=== PATIENT | male | born 1950 | race Caucasian/White ===

== ENCOUNTER → 2023-08-16 07:31 | Outpatient (REF) | payer MEDICARE, OTHER, SELFPAY | LOC: MRI 3T 07:31 | PROVIDERS: ATTENDING PHYSICIAN Specialist; FAMILY PHYSICIAN Family Medicine | DX: R97.20 Elevated prostate specific antigen [PSA] (principal); Z12.5 Encounter for screening for malignant neoplasm of prostate | CPT/HCPCS: 72197; A9575 ==

== ENCOUNTER → 2023-09-11 10:16 | Outpatient (REF) | payer MEDICARE, OTHER, SELFPAY | LOC: CLAB 10:16 | PROVIDERS: ATTENDING PHYSICIAN Specialist | DX: R97.20 Elevated prostate specific antigen [PSA] (principal) | CPT/HCPCS: 88305 ==

== ENCOUNTER → 2024-01-07 06:03 | Outpatient (REF) | payer MEDICARE, OTHER, SELFPAY ==
[2024-01-07 10:24] LABS: PSA, Total - Diagnostic 3.68 ng/ml (0.0-4.0)
== END ==
LOC: HWLAB 06:03
PROVIDERS: ATTENDING PHYSICIAN Specialist; FAMILY PHYSICIAN Family Medicine
DX: C61 Malignant neoplasm of prostate (principal)
CPT/HCPCS: 36415; 84153

== ENCOUNTER → 2024-01-23 06:01 | Outpatient (REF) | payer MEDICARE, OTHER, SELFPAY ==
[2024-01-23 10:48] LABS: ALT (SGPT) 19 U/L (0-50); AST (SGOT) 23 U/L (17-59); Albumin 4.2 g/dl (3.5-5.0); Alkaline Phosphatase 68 U/L (38-126); Blood Urea Nitrogen 13 mg/dl (9-20); Calcium 9.8 mg/dl (8.4-10.2); Carbon Dioxide 29 mmol/L (22-30); Chloride 100 mmol/L (98-107); Glucose 113 mg/dl (70-99); Potassium 4.4 mmol/L (3.5-5.1); Sodium 135 mmol/L (135-145); Total Bilirubin 0.6 mg/dl (0.2-1.3); Total Protein 6.7 g/dl (6.3-8.2); Uric Acid 4.9 mg/dl (3.5-8.5); eGFR > 60.00
== END ==
LOC: HWLAB 06:01
PROVIDERS: ATTENDING PHYSICIAN Internal Medicine Rheumatology; FAMILY PHYSICIAN Family Medicine
DX: M10.9 Gout, unspecified (principal)
CPT/HCPCS: 36415; 80053; 84550

== ENCOUNTER → 2024-01-30 06:01 | Outpatient (REF) | payer MEDICARE, OTHER, SELFPAY ==
[2024-01-30 10:20] LABS: Erythrocyte Sed Rate 16 mm/hour (0-20)
[2024-01-31 16:01] LABS: Rheumatoid Agglutinin Less Than 10 IU (<10 IU)
[2024-01-31 22:40] LABS: ANA, IgG Reflex to HEp-2 None Detected (None Detected)
[2024-02-01 00:11] LABS: CCP Antibody IgG/IgA 3 Units (0-19)
== END ==
LOC: HWLAB 06:01
PROVIDERS: ATTENDING PHYSICIAN Internal Medicine Rheumatology; FAMILY PHYSICIAN Family Medicine
DX: M25.50 Pain in unspecified joint (principal)
CPT/HCPCS: 36415; 73110; 73130; 85652; 86038; 86140; 86200; 86430

== ENCOUNTER → 2024-04-01 06:09 | Outpatient (REF) | payer MEDICARE, OTHER, SELFPAY ==
[2024-04-01 08:45] LABS: Urine Albumin Negative (Neg - Trace); Urine Bilirubin Negative (Negative); Urine Glucose Negative (Negative); Urine Ketone Negative (Negative); Urine Leukocyte Negative (Negative); Urine Nitrite Negative (Negative); Urine Occult Blood Negative (Negative); Urine Urobilinogen Negative (Neg - 1+); Urine pH 6.5 (5.0-9.0)
[2024-04-01 08:50] LABS: % Basophils 1.4 % (0-2); % Eosinophils 2.3 % (0-6); % Immature Granulocytes 0.4 % (0-0.5); % Lymphocytes 26.4 % (20.5-51.1); % Monocytes 13.1 % (1.7-9.3); % Neutrophils 56.4 % (42.2-75.2); Absolute Basophils 0.1 10^3/uL (0-0.2); Absolute Eosinophils 0.1 10^3/uL (0-0.7); Absolute Lymphocytes 1.5 10^3/uL (1.2-3.4); Absolute Monocytes 0.7 10^3/uL (0.1-0.6); Absolute Neutrophils 3.1 10^3/uL (1.4-6.5); Hematocrit 43.4 % (39.0-52.0); Hemoglobin 14.9 g/dL (13.0-18.0); Mean Corp Hgb Conc. 34.3 g/dL (33.0-37.0); Mean Corpuscular Hgb 32.7 pg (27.0-31.0); Mean Corpuscular Volume 95.2 fL (80.0-94.0); Mean Platelet Volume 9.4 fL (7.4-10.4); Nucleated Red Blood Cells % 0 % (-); Platelet Count 185 10^3/uL (130-400); Red Blood Cell Count 4.56 10^6/uL (4.70-6.10); Red Cell Dist. Width 13.2 % (11.5-14.5); White Blood Cell Count 5.6 10^3/uL (4.8-10.8)
[2024-04-01 09:00] LABS: Urine Character Clear (Clear); Urine Color Yellow
[2024-04-01 09:03] LABS: ALT (SGPT) 22 U/L (0-50); AST (SGOT) 23 U/L (17-59); Albumin 4.4 g/dl (3.5-5.0); Alkaline Phosphatase 53 U/L (38-126); Blood Urea Nitrogen 15 mg/dl (9-20); Calcium 9.6 mg/dl (8.4-10.2); Carbon Dioxide 28 mmol/L (22-30); Chloride 97 mmol/L (98-107); Glucose 106 mg/dl (70-99); HDL Cholesterol 89 mg/dl; LDL Cholesterol, Calculated 141 mg/dl; Potassium 4.4 mmol/L (3.5-5.1); Sodium 137 mmol/L (135-145); Total Bilirubin 0.9 mg/dl (0.2-1.3); Total Cholesterol 250 mg/dl (50-199); Total Protein 7.1 g/dl (6.3-8.2); Triglyceride 102 mg/dl (10-149); Very Low Density Lipoprotein 20 mg/dl (0-30); eGFR > 60.00
[2024-04-01 09:38] LABS: Glycohemoglobin (HgbA1c) 5.2 % (4.0-5.6)
[2024-04-01 09:39] LABS: PSA, Total - Diagnostic 4.74 ng/ml (0.0-4.0); TSH 2.12 uIU/ml (0.47-4.68)
[2024-04-03 20:52] LABS: Quantiferon Mitogen minus NIL 4.71 IU/mL; Quantiferon TB Gold Plus Negative (Negative)
== END ==
LOC: HWLAB 06:09
PROVIDERS: ATTENDING PHYSICIAN Specialist; FAMILY PHYSICIAN Family Medicine; REFERRING PHYSICIAN Internal Medicine Rheumatology
DX: L40.59 Other psoriatic arthropathy (principal); E78.2 Mixed hyperlipidemia; I10 Essential (primary) hypertension; R73.03 Prediabetes; C61 Malignant neoplasm of prostate
CPT/HCPCS: 36415; 80053; 80061; 81003; 83036; 84153; 84443; 85025; 86140; 86480

== ENCOUNTER → 2024-07-04 09:12 | Outpatient (REF) | payer MEDICARE, OTHER, SELFPAY ==
[2024-07-04 14:28] LABS: PSA, Total - Diagnostic 3.86 ng/ml (0.0-4.0)
== END ==
LOC: HWLAB 09:12
PROVIDERS: ATTENDING PHYSICIAN Specialist; FAMILY PHYSICIAN Family Medicine
DX: C61 Malignant neoplasm of prostate (principal)
CPT/HCPCS: 36415; 84153

== ENCOUNTER → 2024-08-06 06:13 | Outpatient (REF) | payer MEDICARE, OTHER, SELFPAY ==
[2024-08-06 09:28] LABS: % Basophils 1.2 % (0-2); % Eosinophils 3.7 % (0-6); % Immature Granulocytes 0.4 % (0-0.5); % Lymphocytes 22.8 % (20.5-51.1); % Monocytes 14.2 % (1.7-9.3); % Neutrophils 57.7 % (42.2-75.2); Absolute Basophils 0.1 10^3/uL (0-0.2); Absolute Eosinophils 0.2 10^3/uL (0-0.7); Absolute Lymphocytes 1.2 10^3/uL (1.2-3.4); Absolute Monocytes 0.7 10^3/uL (0.1-0.6); Absolute Neutrophils 2.9 10^3/uL (1.4-6.5); Hematocrit 39.6 % (39.0-52.0); Hemoglobin 13.7 g/dL (13.0-18.0); Mean Corp Hgb Conc. 34.6 g/dL (33.0-37.0); Mean Corpuscular Hgb 32.5 pg (27.0-31.0); Mean Corpuscular Volume 93.8 fL (80.0-94.0); Mean Platelet Volume 9.8 fL (7.4-10.4); Nucleated Red Blood Cells % 0 % (-); Platelet Count 176 10^3/uL (130-400); Red Blood Cell Count 4.22 10^6/uL (4.70-6.10); Red Cell Dist. Width 12.4 % (11.5-14.5); White Blood Cell Count 5.1 10^3/uL (4.8-10.8)
[2024-08-06 09:36] LABS: ALT (SGPT) 20 U/L (0-50); AST (SGOT) 27 U/L (17-59); Albumin 4.8 g/dl (3.5-5.0); Alkaline Phosphatase 55 U/L (38-126); Blood Urea Nitrogen 13 mg/dl (9-20); Calcium 9.4 mg/dl (8.4-10.2); Carbon Dioxide 29 mmol/L (22-30); Chloride 96 mmol/L (98-107); Glucose 101 mg/dl (70-99); HDL Cholesterol 79 mg/dl; Potassium 4.6 mmol/L (3.5-5.1); Sodium 134 mmol/L (135-145); Total Bilirubin 0.7 mg/dl (0.2-1.3); Total Protein 7.4 g/dl (6.3-8.2); Triglyceride 79 mg/dl (10-149); Uric Acid 4.1 mg/dl (3.5-8.5); Very Low Density Lipoprotein 15 mg/dl (0-30); eGFR > 60.00
[2024-08-06 09:41] LABS: LDL Cholesterol, Calculated 112 mg/dl; Total Cholesterol 206 mg/dl (50-199)
[2024-08-06 09:44] LABS: C-Reactive Protein < 5.00 mg/L (0.0-10.00)
[2024-08-06 10:06] LABS: Glycohemoglobin (HgbA1c) 5.1 % (4.0-5.6)
[2024-08-06 10:20] LABS: Free T4 0.91 ng/dl (0.78-2.19)
[2024-08-06 10:23] LABS: TSH 2.44 uIU/ml (0.47-4.68)
[2024-08-08 05:15] LABS: Quantiferon Mitogen minus NIL 9.99 IU/mL; Quantiferon NIL 0.01 IU/mL; Quantiferon TB Gold Plus Negative (Negative)
== END ==
LOC: HWLAB 06:13
PROVIDERS: ATTENDING PHYSICIAN Internal Medicine Rheumatology; FAMILY PHYSICIAN Family Medicine
DX: M10.9 Gout, unspecified (principal); L40.59 Other psoriatic arthropathy; E78.2 Mixed hyperlipidemia; R73.03 Prediabetes; Z85.820 Personal history of malignant melanoma of skin
CPT/HCPCS: 36415; 80053; 80061; 83036; 84439; 84443; 84550; 85025; 86140; 86480

== ENCOUNTER → 2024-09-15 08:56 | Outpatient (REF) | payer MEDICARE, OTHER, SELFPAY | LOC: HWRAD 08:56 | PROVIDERS: ATTENDING PHYSICIAN Internal Medicine Rheumatology; FAMILY PHYSICIAN Family Medicine | DX: M85.89 Other specified disorders of bone density and structure, multiple sites (principal) | CPT/HCPCS: 77080 ==

== ENCOUNTER → 2024-09-30 11:31 | Outpatient (REF) | payer MEDICARE, OTHER, SELFPAY ==
[2024-09-30 16:12] LABS: PSA, Total - Diagnostic 3.97 ng/ml (0.0-4.0)
== END ==
LOC: HWLAB 11:31
PROVIDERS: ATTENDING PHYSICIAN Specialist; FAMILY PHYSICIAN Physician Assistant
DX: R05.1 Acute cough (principal); C61 Malignant neoplasm of prostate
CPT/HCPCS: 36415; 71046; 84153

== ENCOUNTER → 2025-01-19 06:06 | Outpatient (REF) | payer MEDICARE, OTHER, SELFPAY ==
[2025-01-19 09:42] LABS: ALT (SGPT) 18 U/L (0-50); AST (SGOT) 21 U/L (17-59); Albumin 4.2 g/dl (3.5-5.0); Alkaline Phosphatase 55 U/L (38-126); Blood Urea Nitrogen 15 mg/dl (9-20); Calcium 9.4 mg/dl (8.4-10.2); Carbon Dioxide 29 mmol/L (22-30); Chloride 99 mmol/L (98-107); Glucose 103 mg/dl (70-99); Potassium 4.2 mmol/L (3.5-5.1); Sodium 132 mmol/L (135-145); Total Protein 6.9 g/dl (6.3-8.2); Uric Acid 4.3 mg/dl (3.5-8.5); eGFR > 60.00
[2025-01-19 09:43] LABS: C-Reactive Protein < 5.00 mg/L (0.0-10.00)
[2025-01-19 10:18] LABS: PSA, Total - Diagnostic 3.77 ng/ml (0.0-4.0)
== END ==
LOC: HWLAB 06:06
PROVIDERS: ATTENDING PHYSICIAN Specialist; FAMILY PHYSICIAN Family Medicine; REFERRING PHYSICIAN Internal Medicine Rheumatology
DX: M10.9 Gout, unspecified (principal); C61 Malignant neoplasm of prostate
CPT/HCPCS: 36415; 80053; 84153; 84550; 86140

== ENCOUNTER → 2025-04-01 09:50 | Outpatient (REF) | payer MEDICARE, OTHER, SELFPAY ==
[2025-04-01 14:03] LABS: PSA, Total - Diagnostic 3.99 ng/ml (0.0-4.0)
== END ==
LOC: HWLAB 09:50
PROVIDERS: ATTENDING PHYSICIAN Specialist; FAMILY PHYSICIAN Family Medicine
DX: C61 Malignant neoplasm of prostate (principal)
CPT/HCPCS: 36415; 84153

== ENCOUNTER → 2025-04-15 09:05 | Outpatient (REF) | payer MEDICARE, OTHER, SELFPAY | LOC: HWRCS 09:05 | PROVIDERS: ATTENDING PHYSICIAN Internal Medicine; FAMILY PHYSICIAN Family Medicine | DX: R06.09 Other forms of dyspnea (principal); R01.1 Cardiac murmur, unspecified | CPT/HCPCS: 93306 ==